=== PATIENT | female | born 2000 | race Caucasian/White ===

== ENCOUNTER 2020-09-13 19:27 | Emergency (ER) | payer BC ==
[~2020-09-13] VITALS: Ht 167.6 cm; Wt 63.5 kg
[2020-09-13 19:30] VITALS: BP 91/73
[2020-09-13] MEDS: HYDROcodone/APAP 5/325 MG 1 TAB TAB PO ONE (19:57)
[2020-09-13] MEDS: AMOXIL/CLAVULANATE 875/125 MG 1 TAB PO ONE (19:57)
[2020-09-13] MEDS: LIDOCAINE MPF 1% 10 MG/ML VIAL INJ ONE (20:07)
[2020-09-13] MEDS ORDERED: BACITRACIN OINT 500 UNITS/GM PKT TP ONE (20:43)
[2020-09-13] MEDS: BACITRACIN OINT 500 UNITS/GM PKT TP ONE (20:55)
[2020-09-13 21:16] VITALS: BP 113/60
== END 2020-09-13 21:16 | disposition home or self-care (01) ==
LOC: MED 19:27
DX: S61.257A Open bite of left little finger without damage to nail, initial encounter (principal); Z89.022 Acquired absence of left finger(s); W54.0XXA Bitten by dog, initial encounter; Y93.89 Activity, other specified; Y92.89 Other specified places as the place of occurrence of the external cause; Y99.8 Other external cause status
CPT/HCPCS: 73130; 90471; 90715; 99283; J2001